=== PATIENT | female | born 1980 | race Caucasian/White ===

== ENCOUNTER 2021-02-04 11:27 | Outpatient (CLI) | payer BC | END 2021-02-04 11:28 | disposition home or self-care (01) | LOC: BICRAD 11:27 | PROVIDERS: ATTEND Allergy & Immunology | DX: M25.551 Pain in right hip (principal); M25.552 Pain in left hip ==

== ENCOUNTER 2021-04-08 12:46 | Outpatient (CLI) | payer BC ==
[~2021-04-08 12:46] MED LIST: Magnevist 469MG/ML 20 ML VIAL ONE
== END 2021-04-08 12:47 | disposition home or self-care (01) ==
LOC: MRI 12:46
PROVIDERS: ATTEND Internal Medicine Hematology & Oncology
DX: C55 Malignant neoplasm of uterus, part unspecified (principal); N85.8 Other specified noninflammatory disorders of uterus
CPT/HCPCS: 72197; A9579

== ENCOUNTER 2022-04-17 13:26 | Outpatient (CLI) | payer BC ==
[~2022-04-17 13:26] MED LIST changes: +Iopamidol-370 76% 500 ML 1 ML ONE; -Magnevist 469MG/ML 20 ML VIAL ONE
== END 2022-04-17 13:27 | disposition home or self-care (01) ==
LOC: BICCT 13:26
PROVIDERS: ATTEND Nurse Practitioner
DX: C55 Malignant neoplasm of uterus, part unspecified (principal); C54.9 Malignant neoplasm of corpus uteri, unspecified; R59.0 Localized enlarged lymph nodes
CPT/HCPCS: 71260; 74177; Q9967